=== PATIENT | male | born 1955 ===

== ENCOUNTER 2017-01-15 07:38 | Day surgery (SDC) | payer OTHER ==
[2017-01-15 08:15] VITALS: BMI 27.1
[2017-01-15 08:29] VITALS: TEMP 98.7
[2017-01-15] MEDS ORDERED: Sodium Chloride 0.9% 500 ML IV ONE (09:41)
[2017-01-15] MEDS ORDERED: Lidocaine Hydrochloride 5 ML INJ ONE (09:41)
[2017-01-15] MEDS ORDERED: Propofol 10 mg/ml Inj (20 ML) ONE ×2 (09:41→09:58)
[2017-01-15 09:46] VITALS: RESP 13
[2017-01-15 10:56] VITALS: O2SAT 98
[2017-01-15 10:59] VITALS: BP 129/73; PULSE 73
== END 2017-01-15 10:57 | disposition home or self-care (01) ==
LOC: C.ENDO 07:38
PROVIDERS: ATTEND Internal Medicine Gastroenterology
DX: D12.2 Benign neoplasm of ascending colon (principal); K64.8 Other hemorrhoids; D12.4 Benign neoplasm of descending colon
CPT/HCPCS: 45385; 88305; J2704; J7040